=== PATIENT | male | born 1960 | race Caucasian/White ===

== ENCOUNTER 2018-12-14 21:33 | Emergency (ER) | payer OTHER ==
[~2018-12-14] VITALS: Ht 170.2 cm; Wt 76.2 kg
[2018-12-14] MEDS ORDERED: ANTIBIOTIC TOP (21:44)
[2018-12-14] MEDS ORDERED: NORCO 5-325 TA1 EACH PO (23:17)
[2018-12-14 23:46] VITALS: BP 110/80
== END 2018-12-14 23:47 | disposition home or self-care (01) ==
LOC: ER 21:33
DX: S64.12XA Injury of median nerve at wrist and hand level of left arm, initial encounter (principal); F17.210 Nicotine dependence, cigarettes, uncomplicated; Z96.642 Presence of left artificial hip joint; Z88.5 Allergy status to narcotic agent; X50.9XXA Other and unspecified overexertion or strenuous movements or postures, initial encounter; Y93.89 Activity, other specified; Y92.89 Other specified places as the place of occurrence of the external cause; Y99.8 Other external cause status